=== PATIENT | male | born 1940 | race Caucasian/White ===

== ENCOUNTER 2020-02-17 20:03 | Emergency (ER) | payer MEDICARE, OTHER ==
[~2020-02-17] VITALS: Ht 172.7 cm; Wt 87.0 kg
[~2020-02-17 20:03] MED LIST: ASPI-650 PO; LISI-467 PO; METO-95 PO; MULT-26 PO; NAPR-685 PO; ROSU10TA2 PO; TERA5CAP3 PO
--- NOTE | 2020-02-17 20:09 | NUR ---
ERMD AT BEDSIDE FOR EVALUATION.
--- NOTE | 2020-02-17 20:14 | NUR ---
PATIENT DO FERRER WITH CHIEF C/O GLF. PER EMS PATIENT HAS BEEN HAVING SOME LEG WEAKNESS, AND HIS LEGS GAVE OUT ON HIM AND HE HAD A FALL AT HOME HITTING HIS LEFT SHOULDER ON THE FLOOR. PATIENT DENIES LOC, DENIES HITTING HEAD. PER EMS LEFT SHOULDER WAS DISLOCATED AND WHEN PATIENT WAS BEING LOADED INTO AMBULANCE SHOULDER "POPPED BACK INTO PLACE." PATIENT REPORTED FEELING RELIEF FROM THE PAIN. PATIENT DENIES DISLOCATING SHOULDER PREVIOUSLY. CMS INTACT. EMS STATES PATIENT REFUSED PAIN MEDICATION. NADN, PATIENT REPORTS 5/10 LEFT SHOULDER PAIN AT THIS TIME, VSS, SIDE RAILS UP X2, CALL LIGHT WITHIN REACH.
--- NOTE | 2020-02-17 20:19 | NUR ---
BEDSIDE REPORT RECEIVED FROM AGATHA ARIAS
--- NOTE | 2020-02-17 20:20 | NUR ---
XRAY AT BEDSIDE
--- NOTE | 2020-02-17 20:45 | NUR ---
SHOULDER IMMOBILIZER PLACED ON LEFT SIDE PER MD ORDER. PT TOLERATED WELL.
[2020-02-17 20:58] VITALS: BP 121/74
--- NOTE | 2020-02-17 21:07 | NUR ---
Patient given discharge instructions and they have confirmed that they understand the instructions. Patient to d/c desk via wheelchair and personal cane.
== END 2020-02-17 21:09 | disposition home or self-care (01) ==
LOC: ED 21:00
DX: M24.312 Pathological dislocation of left shoulder, not elsewhere classified (principal); Z87.891 Personal history of nicotine dependence
CPT/HCPCS: 29105; 99283

== ENCOUNTER → 2020-09-06 | Outpatient (CLI) | payer MEDICARE ==
[~2020-09-06] MED LIST changes: -ASPI-650 PO; +ASPI325T20 PO
== END | disposition home or self-care (01) ==
LOC: CFH 11:01
PROVIDERS: ATTEND Internal Medicine Cardiovascular Disease
DX: R60.9 Edema, unspecified (principal); I10 Essential (primary) hypertension
CPT/HCPCS: 93970

== ENCOUNTER 2020-10-10 09:55 | Outpatient (CLI) | payer MEDICARE | END 2020-10-10 23:59 | disposition home or self-care (01) | LOC: CVU 09:55 | PROVIDERS: ATTEND Internal Medicine Cardiovascular Disease | DX: I10 Essential (primary) hypertension (principal); R60.9 Edema, unspecified | CPT/HCPCS: 93970 ==

== ENCOUNTER 2020-10-19 12:29 | Outpatient (CLI) | payer MEDICARE ==
[~2020-10-19 12:29] MED LIST changes: +REGADENOSON 0.4 MG/5 ML SYRINGE ONE
== END 2020-10-19 23:59 | disposition home or self-care (01) ==
LOC: CFH 12:29
PROVIDERS: ATTEND Internal Medicine Cardiovascular Disease
DX: Z01.810 Encounter for preprocedural cardiovascular examination (principal); I10 Essential (primary) hypertension
CPT/HCPCS: 78452; 93017; A9502; J2785

== ENCOUNTER 2020-10-25 09:49 | Outpatient (CLI) | payer MEDICARE ==
[~2020-10-25 09:49] MED LIST changes: -REGADENOSON 0.4 MG/5 ML SYRINGE ONE
== END 2020-10-25 23:59 | disposition home or self-care (01) ==
LOC: CVU 09:49
PROVIDERS: ATTEND Internal Medicine Cardiovascular Disease
DX: Z01.810 Encounter for preprocedural cardiovascular examination (principal); I35.8 Other nonrheumatic aortic valve disorders; I10 Essential (primary) hypertension; G45.9 Transient cerebral ischemic attack, unspecified
CPT/HCPCS: 93306